=== PATIENT | female | born 1955 | race Caucasian/White ===

== ENCOUNTER 2017-07-14 12:59 | Emergency (ER) | payer BC ==
--- NOTE | 2017-07-14 13:17 | EDM.PDOC ---
ED HPI GENERAL MEDICAL PROBLEM - General Chief Complaint: Respiratory Problem Stated Complaint: COUGH,CONGESTION, ACHES Time Seen by Provider: 07/14/17 13:03 Source of Information: Reports: Patient History Limitations: Reports: No Limitations - History of Present Illness INITIAL COMMENTS - FREE TEXT/NARRATIVE: HISTORY AND PHYSICAL: History of present illness: Patient is a 62-year-old female who presents to the emergency room today with complaints of body aches, fever and cough x 2 days. States "I feel like I been hit by a [place] truck". She denies any chest pain, shortness of breath, abdominal pain, nausea, vomiting or diarrhea. Has not found any [id number] products that have seemed to help. Has not received the flu vaccine this year. Review of systems: As per history of present illness and below otherwise all systems reviewed and negative. Past medical history: As per history of present illness and as reviewed below otherwise noncontributory. Surgical history: As per history of present illness and as reviewed below otherwise noncontributory. Social history: No reported history of drug or alcohol abuse. Family history: As per history of present illness and as reviewed below otherwise noncontributory. Physical exam: General: Well-developed and well-nourished 62-year-old female. Alert and oriented. Appears in no acute distress. HEENT: Atraumatic, normocephalic, pupils reactive, negative for conjunctival pallor or scleral icterus, mucous membranes moist, throat clear, neck supple, nontender, trachea midline. Lungs: Clear to auscultation, breath sounds equal bilaterally, chest nontender. Heart: S1S2, regular rate and rhythm Abdomen: Soft, nondistended, nontender. Negative for masses or hepatosplenomegaly. Negative for costovertebral tenderness. Pelvis: Stable nontender. Genitourinary: Deferred. Rectal: Deferred. Extremities: Atraumatic, moves all extremities per self, negative for cords or calf pain. Neurovascular unremarkable. Neuro: Awake, alert, oriented. Cranial nerves II through XII unremarkable. Cerebellum unremarkable. Motor and sensory unremarkable throughout. Exam nonfocal. Patient tested positive for influenza A. Will treat with Tamiflu. We discussed supportive care measures and contact precautions. Encouraging fluids at home. She'll follow-up with her primary care provider in the next week. Encouraged her to be fever free for 24 hours prior to returning to work. She voices understanding and is agreeable to plan of care. She denies any questions at this time. Diagnostics: Influenza, chest x-ray Therapeutics: [] Impression: Viral illness (Influenza A) Plan: 1. Tylenol and/or ibuprofen as needed for pain and fever management. Encourage plenty of fluids to prevent dehydration. Rest. 2. Abstain from precipitating in group activities/work until your fever free for 24 hours and this is contagious. 3. Follow-up with your primary care provider in the next 1-2 days. Return to the ED as needed and as discussed. Definitive disposition and diagnosis as appropriate pending reevaluation and review of above. Duration: Day(s): Location: Reports: Generalized body aches Pain Score (Numeric/FACES): 5 - Related Data Allergies Allergy/AdvReac Type Severity Reaction Status Date / Time Penicillins Allergy Hives Verified 07/14/17 13:24 Home Meds: Home Meds . [No Known Home Meds] 07/14/17 [History] ED ROS GENERAL - Review of Systems Review Of Systems: ROS reveals no pertinent complaints other than HPI. ED EXAM, GENERAL - Physical Exam Exam: See Below (See dictation) Course - Vital Signs Last Recorded V/S: Last Vital Signs Temp 101 F H 07/14/17 14:18 Pulse 104 H 07/14/17 14:18 Resp 18 07/14/17 14:18 BP 140/88 07/14/17 14:18 Pulse Ox 94 L 07/14/17 14:18 - Orders/Labs/Meds Orders: Active Orders 24 hr Category Date Time Status Chest 2V [CR] Stat Exams 07/14/17 13:14 Taken Departure - Departure Time of Disposition: 14:21 Disposition: Home, Self-Care 01 Clinical Impression: Influenza A - Discharge Information Referrals: Patricio Marlow MD [Primary Care Provider] - Forms: ED Department Discharge Additional Instructions: My general discharge The following information is given to patients seen in the emergency department who are being discharged to home. This information is to outline your options for follow-up care. We provide all patients seen in our emergency department with a follow-up referral. The need for follow-up, as well as the timing and circumstances, are variable depending upon the specifics of your emergency department visit. If you don't have a primary care physician on staff, we will provide you with a referral. We always advise you to contact your personal physician following an emergency department visit to inform them of the circumstance of the visit and for follow-up with them and/or the need for any referrals to a consulting specialist. The emergency department will also refer you to a specialist when appropriate. This referral assures that you have the opportunity for follow-up care with a specialist. All of these measure are taken in an effort to provide you with optimal care, which includes your follow-up. Under all circumstances we always encourage you to contact your private physician who remains a resource for coordinating your care. When calling for follow-up care, please make the office aware that this follow-up is from your recent emergency room visit. If for any reason you are refused follow-up, please contact the [facility] Emergency Department at and asked to speak to the emergency department charge nurse. [facility] Primary Care [address] [place] [id number] 1. Phenergan with codeine 1 teaspoons every 4 hours as needed. Please reserve for nighttime use. Will cause drowsiness so do not take it will driving or needing to be functioning outside the house. Tylenol and/or ibuprofen as needed for pain and fever management. Encourage plenty of fluids to prevent dehydration. Rest. 2. Contact precautions as you are contagious. Abstain from precipitating in group activities/work until your fever free for 24 hours and this is contagious. 3. Follow-up with your primary care provider in the next 1-2 days. Return to the ED as needed and as discussed. - My Orders Last 24 Hours: My Active Orders 07/14/17 13:14 Chest 2V [CR] Stat - Assessment/Plan Last 24 Hours: My Active Orders 07/14/17 13:14 Chest 2V [CR] Stat
--- NOTE | 2017-07-16 14:21 | CR ---
EXAM DATE: 07/14/17 PATIENT'S AGE: 62 Patient: SO GREGORY Facility: [place], [place] Site . Site : [id number] Study: XRay Chest [id number]/[id number] 1:52:52 PM Ordering Physician: Doctor Pulido Final Report: INDICATION: Cough and body aches for 2 days. TECHNIQUE: PA and lateral chest x-ray. FINDINGS: Moderate degenerate hypertrophic changes in the mid and lower thoracic spine. Heart size normal. Prominent cardiac fat pads at the lower heart on the left and right. Minimal opacity in the right lung base medially along the heart border may be related to overlapping shadows. No focal dense infiltrate or consolidation either lung. Increased opacity in the lower retrosternal region on lateral view may be related to a cardiac fat pad or other benign density. Chest otherwise negative without acute disease. Dictated by Fly Quinonez MD @ Jul 14 2017 2:26PM (Electronic Signature) Report Signed by Proxy. [email or web address]
== END 2017-07-14 14:45 | disposition home or self-care (01) ==
LOC: MW.ED 12:59
DX: J10.1 Influenza due to other identified influenza virus with other respiratory manifestations (principal); B34.9 Viral infection, unspecified; Z88.0 Allergy status to penicillin
CPT/HCPCS: 71046; 71046-26; 87804; 99283